=== PATIENT | male | born 1990 | race Caucasian/White ===

== ENCOUNTER 2025-02-01 06:51 | Day surgery (SDC) | payer BC, SELFPAY ==
[2025-02-01] VITALS (7 sets, daily range): BP systolic 108–122; BP diastolic 80–89; PULSE 64–89; RESP 16; TEMP 36.1–36.6; O2SAT 97–99; BMI 25.2
[2025-02-01] MEDS: MIDAZOLAM HCL 1 MG/ML inj IVP (07:02)
[2025-02-01] MEDS: LACTATED RINGERS 1000 ML 1,000 ML 100 ML IV (07:05)
--- NOTE | 2025-02-01 07:17 | W.PM.H&PU ---
History & Physical Update History & Physical Update H&P Reviewed and patient assessed: No changes noted
--- NOTE | 2025-02-01 07:17 | PM.ORPRC ---
Procedure Note Date of procedure: 02/01/25 Procedure: PREOPERATIVE DIAGNOSIS: 1. Right distal biceps rupture POSTOPERATIVE DIAGNOSIS: 1. Right distal biceps rupture PROCEDURE: 1. Right distal biceps repair SURGEON: Hayden Harris MD. INTERACTIVE MEDIA DIRECTOR: Jeoy Broderick - Of note, an special education teaching assistant was critical for this case to aid in patient positioning, tissue retraction, limb manipulation/positioning, and wound closure. ANESTHESIA: General with axillary nerve block IMPLANTS: Arthrex biceps button implant and a 7 mm x 10 mm peek tenodesis screw TOURNIQUET: Not utilized ESTIMATED BLOOD LOSS: 10 mL COMPLICATIONS: None evident INDICATIONS: The patient is 34-year-old male who sustained a right distal biceps rupture.. Recommendation was subsequently made for surgical repair to restore function of the biceps. Prior to surgery, the risks and benefits of procedure were discussed with patient, all questions were answered, and informed consent was obtained. DESCRIPTION OF PROCEDURE: Following a thorough discussion of risks, benefits, and alternatives consent was obtained and the operative site was marked. The patient was brought to the operating room and placed supine on the operating table. Induction of anesthesia was undertaken. IV Ancef was administered within 1 hr of incision preoperatively for prophylaxis. A tourniquet was placed on the patient's operative arm but was not utilized during the course of procedure. Right upper extremity was then prepped and draped in usual sterile fashion. A surgical time-out was performed confirming patient identity, surgical site, and surgical procedure. A longitudinal incision measuring 3-4 cm was made on the proximal volar forearm distal to the elbow flexion crease along the ulnar border of the brachioradialis. Blunt dissection was used to dissect through the subcutaneous tissues. Electrocautery was used to achieve hemostasis. The distal biceps tendon was identified and was dissected away from surrounding soft tissues. The end of the tendon was debrided. A #2 FiberLoop suture was then used to whipstitch the distal end of the biceps tendon. After whipstitch was complete, the tendon was able to pass through the 7 mm sizing block. Elbow was then placed in full extension and full supination. Deep dissection was used to expose the radial tuberosity. A crossing vein was tied with 3-0 silk and ligated. Radial tuberosity was identified and cleared of soft tissue. A 3.2 mm bicortical tunnel was drilled in the radial tuberosity. Prior to drilling, fluoroscopic imaging was used to confirm drill placement in the radial tuberosity. An 7 mm unicortical tunnel was then drilled over the 3.2 mm guide pin. Guide pin and Reamer were removed. Wound was irrigated with normal saline and bone debris was removed. Sutures were then passed through the biceps button implant. The button regulator pin inserter was used to pass the implant through both cortices of the radial tuberosity and button was flipped and seated on the cortical bone. Fluoroscopic imaging was used to confirm button deployment. Suture ends were then tensioned docking the tendon into the unicortical tunnel. Once the tendon was fully seated, 1 limb of suture was passed through the tendon, and a knot was tied. A 7 mm by 10 mm peek tenodesis screw was loaded over 1 suture limb, and the screw was inserted on the radial side of the bone tunnel. Once the tenodesis screw was fully seated, sutures were tied over the top of the screw, and remnant suture was cut and removed. Final fluoroscopic images were obtained confirming anatomic location of the biceps button. Wound was again irrigated with normal saline. Wound was then closed with 2-0 Vicryl, 2-0 Stratafix. Sterile dressings were applied followed by a well-padded long-arm posterior splint. Patient was awoken from anesthesia and transferred to the PACU in stable condition. POSTOPERATIVE PLAN: 1. No lifting, pushing, or pulling with the right upper extremity 2. Keep splint clean and dry, wear sling when ambulating as needed for comfort 3. Ice and elevation for pain and swelling 4. [place] or [id number] pain medications as needed for pain control. 5. Follow-up in Orthopedic Clinic in 10-14 days for wound check and splint removal. 6. Will initiate formal physical therapy per the distal biceps tendon repair rehabilitation protocol in 2 weeks.
[2025-02-01] MEDS: SODIUM CHLORIDE 0.9 % (FLUSH) 10 ML SYRINGE IVF (07:22)
--- NOTE | 2025-02-01 08:27 | CRLHL7_ITS ---
For Patients: As a result of the Cures Act, medical imaging exams and procedure reports are released immediately into your electronic medical record. You may view this report before your referring provider. If you have questions, please contact your health care provider. Indication: distal bicep repair Technique: Two fluoroscopic images of the right elbow. Fluoroscopic time 6.3 seconds. IMPRESSION: Fluoroscopic guidance for distal biceps repair. Dictated by Kevin Rivers MD @ 02/01/2025 10:19:14 AM (Electronically Signed)
--- NOTE | 2025-02-01 10:25 | P.ANES_ITS ---
Anesthesia Charges Start Date/Time Anesthesia Start Date: 02/01/25 Anesthesia Start Time: 08:39 Stop Date/Time Anesthesia Stop Date: 02/01/25 Anesthesia Stop Time: 10:36 Coding CPT Codes CPT Codes: ANESTH BICEPS TENDON REPAIR - 69711 ([id number]) P1 - NORMAL HEALTHY PATIENT, QK - CERTIFIED HYPERBARIC TECHNICIAN 2-4 CNCRNT ANES PROC, QX - MANAGER COMMUNICATION SVSupriya W/ MED DIRECTION
--- NOTE | 2025-02-01 10:25 | W.ANESCHARGE ---
Anesthesia Charges Start Date/Time Anesthesia Start Date: 02/01/25 Anesthesia Start Time: 08:39 Stop Date/Time Anesthesia Stop Date: 02/01/25 Anesthesia Stop Time: 10:36 Coding CPT Codes CPT Codes: ANESTH BICEPS TENDON REPAIR - 06739 ([id number]) P1 - NORMAL HEALTHY PATIENT, QK - ENERGY SCHEDULER 2-4 CNCRNT ANES PROC, QX - HOUSEKEEPER SVSupriya W/ MED DIRECTION
--- NOTE | 2025-02-01 10:26 | W.PM.NB ---
Nerve Block Nerve Block Time Seen by Provider: 08:00 Date Seen: 02/01/25 Type of block requested by surgeon for post-operative analgesia: axillary Side: right Time out performed: Yes Verification of patient name: Yes Verification of date of : Yes Site marking: site marked Name of person performing procedure: Jose Continuous monitoring Was continuous monitoring of O2 sat, B/P, warranty administrator, recorded every 15 minutes?: Yes Procedure Checklist: sterile prep, needles and gloves Ultrasound guided. Images saved: Yes Medications given in 5ml increments after negative aspiration: Ropivicaine %: 0.5 mL: 30 Needle gauge: 22 Patient tolerated procedure well: Yes Additional comments: Needle noted adjacent to nerve Block Charges Block Charge (with Pro Fee): Brachial Plexus Use of Ultrasound Machine for Block: Yes- US Guidance/pain block
--- NOTE | 2025-02-01 10:36 | P.ANES_ITS ---
Anesthesia Charges Start Date/Time Anesthesia Start Date: 02/01/25 Anesthesia Start Time: 08:39 Stop Date/Time Anesthesia Stop Date: 02/01/25 Anesthesia Stop Time: 10:36 Coding CPT Codes CPT Codes: ANESTH BICEPS TENDON REPAIR - 02048 ([id number]) QK - THIRD SHIFT LIEUTENANT 2-4 CNCRNT ANES PROC, QX - MORGUE KEEPER SVC W/ MD MED DIRECTION, P1 - NORMAL HEALTHY PATIENT
--- NOTE | 2025-02-01 10:36 | W.ANESCHARGE ---
Anesthesia Charges Start Date/Time Anesthesia Start Date: 02/01/25 Anesthesia Start Time: 08:39 Stop Date/Time Anesthesia Stop Date: 02/01/25 Anesthesia Stop Time: 10:36 Coding CPT Codes CPT Codes: ANESTH BICEPS TENDON REPAIR - 78709 ([id number]) QK - EXCHANGE TELLER 2-4 CNCRNT ANES PROC, QX - FLOOR INSTALLER SVC W/ MD MED DIRECTION, P1 - NORMAL HEALTHY PATIENT
== END 2025-02-01 12:19 | disposition home or self-care (01) ==
LOC: OR 06:52
PROVIDERS: Visit Provider Orthopaedic Surgery
PROC: (CPT 24341; principal; 2025-02-01 08:45)
DX: S46.211A Strain of muscle, fascia and tendon of other parts of biceps, right arm, initial encounter (principal); G89.18 Other acute postprocedural pain
CPT/HCPCS: 24342; 01716; 64415; 73070; 76942; C1713; J0690; J1100; J2250; J2405; J2704; J2795; J3010; J3490; J7120